=== PATIENT | female | born 1985 | race Hispanic/Latino ===

== ENCOUNTER 2017-12-19 18:49 | Emergency (ER) | payer OTHER ==
[~2017-12-19] VITALS: Ht 162.6 cm; Wt 88.5 kg
--- NOTE | 2017-12-19 19:20 | ED UPPER/LOWER EXTREMITY COMPL ---
History of Present Illness General Chief Complaint: Lower Extremity Injury Stated Complaint: L LEG PAIN S/P FALL TORN ACL PAST OCTOBER Source: patient Exam Limitations: no limitations Vital Signs & Intake/Output Vital Signs & Intake/Output Vital Signs Date Time Temp Pulse Resp B/P B/P Pulse O2 O2 Flow FiO2 Mean Ox Delivery Rate 12/19 1857 98.4 93 18 111/78 98 Room Air Allergies Coded Allergies: amoxicillin (Intermediate, NAUSEA 12/19/17) Reconcile Medications Oxycodone HCl/Acetaminophen (Percocet 5-325 MG Tablet) 5 MG-325 MG TABLET 1 TAB PO BID PAIN Triage Note: 31 YO FEMALE TO TRIAGE FOR EVAL OF PAIN TO L KNEE. STATES HX OF TORN ACL IN SAME KNEE WHICH SHE IS RECICVING THERAPY FOR. STATES SHE TRIPPED DOWN 2 STPES INJURING THE L KNEE. ICE APPLIED. DENIES HEADSTRIKE. DENIES CHANCE OF Triage Nurses Notes Reviewed? yes Onset: Abrupt Duration: hour(s): Timing: recent history Severity: moderate, severe Pain/Injury Location: Left: Knee. No Modifying Factors: none : No Patient currently breastfeeds: No HPI: 31-year-old female comes into the emergency room for further evaluation of left knee pain. Patient reports that she has a history of ACL tear in the left knee. She reports that she was walking down the steps of stairs and her leg buckled and twisted. She's been experiencing much increased pain since then. Comes in for further evaluation. Sharp throbbing. She reports that she currently has a torn ACL in the left knee and she is supposed to get surgery on this knee. Past History Travel History Traveled to [place] past 21 day No Medical History Any Pertinent Medical History? see below for history Neurological: NONE EENT: NONE Cardiovascular: NONE Respiratory: NONE Gastrointestinal: NONE Hepatic: NONE Renal: NONE Musculoskeletal: TORN ACL Psychiatric: NONE Endocrine: NONE Blood Disorders: NONE Cancer(s): NONE INTELLIGENCE RESEARCH SPECIALIST/Reproductive: NONE Surgical History Surgical History: non-contributory Psychosocial History What is your primary language Kyrgyz Tobacco Use: Current Daily Use Daily Tobacco Use Amount/Type: => 5 Cigarettes daily Family History Hx Contributory? No Review of Systems Review of Systems Constitutional: Reports: no symptoms. EENTM: Reports: no symptoms. Respiratory: Reports: no symptoms. Cardiovascular: Reports: no symptoms. Gastrointestinal/Abdominal: Reports: no symptoms. Genitourinary: Reports: no symptoms. Musculoskeletal: Reports: see HPI. Skin: Reports: no symptoms. Neurological/Psychological: Reports: no symptoms. Hematologic/Endocrine: Reports: no symptoms. Immunological: Reports: no symptoms. All Other Systems: Reviewed and Negative Physical Exam Physical Exam General Appearance: well developed/nourished, mild distress Head: atraumatic Eyes: Bilateral: normal appearance. Ears, Nose, Throat: normal ENT inspection, hearing grossly normal Neck: normal inspection Cardiovascular/Respiratory: no respiratory distress Back: normal inspection Knee Left: soft tissue tenderness, limited range of motion, exam limited secondary to patient's pain, pain with any type of lateral stress Neurologic/Tendon: normal sensation, normal motor functions, responds to pain, no evidence tendon injury, no pulse deficit Skin: intact, normal color, warm/dry Progress Differential Diagnosis: contusion, dislocation, fracture, septic arthritis, ACL tear, PCL tear, meniscal tear, LCL tear, Plan of Care: Orders Procedure Date/time Status Durable Medical Equipment 12/19 1958 Active Diagnostic Imaging: Viewed by Me: Radiology Read. Discussed w/RAD: Radiology Read. Radiology Impression: PATIENT: BREANNA BEAR PRESENT AGE: 31 PATIENT ACCOUNT NO: [id number] : 85 LOCATION: [facility] ORDERING PHYSICIAN: Jose WALKER SERVICE DATE: 12/19/17 EXAM TYPE : RAD - XRY-KNEE COMPLETE LEFT EXAMINATION: XR KNEE, LEFT CLINICAL INFORMATION: Knee pain. COMPARISON: Left knee MRI 11/13/2017. TECHNIQUE: Four views of the left knee. FINDINGS: No fracture or dislocation. A joint effusion is present. The joint spaces are maintained. Soft tissues appear normal. IMPRESSION: No acute abnormality. Knee joint effusion is present. DICTATED BY: Jasmeet Iglesias MD DATE/TIME DICTATED:12/19/172024 LIVESTOCK INSPECTOR:YEN DATE/TIME TRANSCRIBED:12/19/172024 CONFIDENTIAL, DO NOT COPY WITHOUT APPROPRIATE AUTHORIZATION. <Electronically signed in Other Vendor System> SIGNED BY: Jasmeet Iglesias MD 12/19/172030 Departure Departure Disposition: HOME OR SELF CARE Condition: Stable Clinical Impression Primary Impression: Left knee injury Referrals: Maddison Robbins (PCP/Family) Additional Instructions: Stay nonweightbearing. Ice. Percocet for pain. Follow-up with orthopedic doctor. Return if any other concerns worsening symptoms. Please go over all results of today's visit with your primary care doctor. Contact your primary care doctor to let them know you were here in the emergency room. There may be nonspecific findings which may not be related to your visit today here in the emergency room but may require further evaluation and chronic monitoring by your primary care doctor. If you had a laceration today the chance of foreign body always remains. You should follow-up with your primary care doctor for recheck in 3-5 days for a wound check. If you had an x-ray done there is a chance that a fracture could have been missed on initial read and you should follow-up with your primary care doctor for repeat x-rays if symptoms persist. If your blood pressure was elevated here in the emergency room please have rechecked by [facility] primary care doctor within the next 48. If you were prescribed a narcotic here in the emergency room or any type of controlled substances you're not allowed to drive while taking this medication or operate any type of heavy machinery. Narcotics can make you feel lightheaded dizziness nausea and can cause constipation. You may need to continuous pickling line pickler a stool softener. Thank you for choosing [facility] emergency room. Please return to the emergency room immediately if you have any other concerns worsening of symptoms. Departure Forms: Customer Survey General Discharge Information Prescriptions: Current Visit Scripts Oxycodone HCl/Acetaminophen (Percocet 5-325 MG Tablet) 1 TAB PO BID #10 TAB Comments 12/19/2017 8:51:16 PM Follow-up with orthopedic doctor. Return if any other concerns worsening symptoms. Procedures Splinting Location: left knee Manual Alignment Performed: No Pre-Made Type: knee imobilizer Splint Applied By: splint applied by me Pre-Proc Neuro Vasc Exam: normal Post-Proc Neuro Vasc Exam: normal
[2017-12-19] MEDS ORDERED: PERCOCET 5-3251 EACH PO (20:00)
--- NOTE | 2017-12-19 20:31 | RADIOLOGY REPORT ---
EXAMINATION: XR KNEE, LEFT CLINICAL INFORMATION: Knee pain. COMPARISON: Left knee MRI 11/13/2017. TECHNIQUE: Four views of the left knee. FINDINGS: No fracture or dislocation. A joint effusion is present. The joint spaces are maintained. Soft tissues appear normal. IMPRESSION: No acute abnormality. Knee joint effusion is present.
[2017-12-19 21:26] VITALS: BP 123/76
== END 2017-12-19 21:29 ==
LOC: ERH 18:49
DX: S89.82XA Other specified injuries of left lower leg, initial encounter (principal); X58.XXXA Exposure to other specified factors, initial encounter; Y93.01 Activity, walking, marching and hiking; Y92.9 Unspecified place or not applicable
CPT/HCPCS: 73562-LT